=== PATIENT | female | born 1980 | race Two or more races ===

== ENCOUNTER 2020-02-26 17:39 | Emergency (ER) | payer OTHER ==
[~2020-02-26] VITALS: Ht 165.1 cm; Wt 72.1 kg
[2020-02-26 17:56] VITALS: BP 128/78; Ht 165.1 cm; Wt 72.1 kg
== END 2020-02-26 18:22 | disposition home or self-care (01) ==
LOC: ED 17:39
DX: S00.11XA Contusion of right eyelid and periocular area, initial encounter (principal); W22.8XXA Striking against or struck by other objects, initial encounter; Y93.89 Activity, other specified; Y92.89 Other specified places as the place of occurrence of the external cause; Y99.8 Other external cause status